=== PATIENT | male | born 1975 | race Hispanic/Latino ===

== ENCOUNTER 2019-09-13 12:42 | Emergency (ER) | payer BC, OTHER ==
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
== END 2019-09-13 16:20 | disposition home or self-care (01) ==
LOC: ERS 12:42
DX: S60.221A Contusion of right hand, initial encounter (principal); I10 Essential (primary) hypertension; Z79.899 Other long term (current) drug therapy; V43.52XA Car driver injured in collision with other type car in traffic accident, initial encounter

== ENCOUNTER 2019-10-03 12:34 | Outpatient (CLI) | payer OTHER ==
--- NOTE | 2019-10-03 12:50 | RAD ---
XR Wrist 3 Rt View STANDARD: 10/03/2019 12:00 AM CLINICAL INDICATION: Sprain COMPARISON: None. FINDINGS: Subtle cortical irregularity of the distal ulna is seen, lateral to the ulnar styloid. Slight soft ti ssue prominence of the wrist is present. Lucencies of the carpus suggest interspersed cyst formation. IMPRESSION: Subtle cortical irregularity of the distal aspect of the ulna, which may represent a recent, nondispl aced distal ulnar fracture. Recommend clinical correlation. As necessary imaging follow-up may be obtained for continued assessment.
== END 2019-10-03 12:35 | disposition home or self-care (01) ==
LOC: BICRAD 12:34
PROVIDERS: ATTEND Student in an Organized Health Care Education/Training Program
DX: S63.511A Sprain of carpal joint of right wrist, initial encounter (principal)